=== PATIENT | male | born 1975 | race Caucasian/White ===

== ENCOUNTER → 2021-05-28 | Day surgery (SDC) | payer OTHER, BC ==
[~2021-05-28] MED LIST: BUPIVACAINE 0.25% 30ML SDV ONE; BUPIVACAINE HCL 0.5% INJ 30 ML VIAL INJ ONE; CLARITIN-D 241 EACH PO; FENTANYL CITRATE/PF 100MCG/2 ML INJ ONE; IBUPROFEN200 MG PO; LIDOCAINE 1% W/EPINEPHRINE 20 ML VIAL ONE; MEPERIDINE HCL INJ 25 MG/ML VIAL ONE; MIDAZOLAM HCL 2 MG/2 ML VIAL ONE
[2021-05-28 07:57] LABS: BASOPHILS # (AUTO) 0.1 (0.0-0.1); BASOPHILS % 1.4 % (0.0-1.0); EOSINOPHILS # (AUTO) 0.2 (0.0-0.4); EOSINOPHILS % 3.2 % (0.0-6.0); HEMATOCRIT 46.5 % (38.2-49.6); HEMOGLOBIN 15.5 g/dL (14.0-18.0); LYMPHOCYTES # (AUTO) 1.6 (1.0-3.2); LYMPHOCYTES % 29.6 % (18.0-39.1); MEAN CORPUSCULAR HEMOGLOBIN 28.6 pg (28-32); MEAN CORPUSCULAR HGB CONC 33.3 g/dL (31-35); MEAN CORPUSCULAR VOLUME 85.8 fL (81-99); MONOCYTES # (AUTO) 0.5 (0.2-0.8); MONOCYTES % 8.5 % (4.4-11.3); NEUTROPHILS # (AUTO) 3.2 (2.1-6.9); NEUTROPHILS % 57.1 % (38.7-80.0); PLATELET COUNT 263 x10e3/uL (140-360); RED BLOOD COUNT 5.42 x10e6/uL (4.3-5.7)
[2021-05-28 08:17] LABS: ALBUMIN 4.3 g/dL (3.5-5.0); ALBUMIN/GLOBULIN RATIO 1.2 (0.8-2.0); ANION GAP 14.2 mmol/L (8-16); CALCIUM 9.9 mg/dL (8.4-10.2); CREATININE, SERUM 1.1 mg/dL (0.72-1.25); POTASSIUM 4.2 mmol/L (3.5-5.1)
[2021-05-28 12:10] VITALS: BP 114/79
== END | disposition home or self-care (01) ==
LOC: OR 07:02
PROVIDERS: ATTEND Surgery
DX: K40.90 Unilateral inguinal hernia, without obstruction or gangrene, not specified as recurrent (principal); Z20.822 Contact with and (suspected) exposure to COVID-19
CPT/HCPCS: 36415; 49505; 80053; 85025; 93005; C1781; J2175; U0002; J2250; J3010